=== PATIENT | male | born 1965 | race Caucasian/White ===

== ENCOUNTER 2021-03-25 16:46 | Emergency (ER) | payer OTHER ==
[2021-03-25 18:27] LABS: Hemoglobin 13.9 g/dL (13.5-17.5); Mean Corpuscular HGB CONC 32.4 g/dL (32.0-36.0); Mean Corpuscular Volume 98.8 fl (81.2-95.1); Mean Platelet Volume 11.9 fl (7.4-10.4); Platelet Count 216 10x3/uL (150-450); Red Blood Cell (RBC) Count 4.34 10x6/uL (4.32-5.72); White Blood Cell (WBC) Count 5.9 10x3/uL (3.5-10.5)
[2021-03-25 18:36] LABS: ALT (SGPT) 25 U/L (8-55); AST (SGOT) 23 U/L (5-34); Alkaline Phosphatase 65 U/L (40-110); Anion Gap 11 mmol/L (10-20); BUN (Urea Nitrogen) 13 mg/dL (8.4-25.7); Bilirubin, Total 0.5 mg/dL (0.2-1.2); CK (CPK) 127 U/L (30-200); Calc. Creatinine Clearance 0 mL/min (70-130); Calcium 8.5 mg/dL (7.8-10.44); Carbon Dioxide 26 mmol/L (22-29); Chloride 109 mmol/L (98-107); Globulin 2.7 g/dL (2.4-3.5); Glucose 95 mg/dL (70-105); Lipase 74 U/L (8-78); Potassium 4.4 mmol/L (3.5-5.1); Protein, Total 6.7 g/dL (6.0-8.3); Sodium 142 mmol/L (136-145)
[2021-03-25 18:58] LABS: Manual Diff?? YES
[2021-03-25 18:59] LABS: MDiff Complete? YES
[2021-03-25 19:01] LABS: Band 3 % (5-11); Eosinophils 1 % (0-10); Lymphocytes 28 % (21-51); Monocytes 15 % (0-10); Neutrophil 53 % (42-75)
[2021-03-25 19:02] LABS: Platelet Morphology Comment Appears Adequate
== END 2021-03-26 11:48 ==
LOC: CSHERS 16:46
DX: R55 Syncope and collapse (principal); S43.401A Unspecified sprain of right shoulder joint, initial encounter; I42.2 Other hypertrophic cardiomyopathy; E78.5 Hyperlipidemia, unspecified; K21.9 Gastro-esophageal reflux disease without esophagitis; M19.90 Unspecified osteoarthritis, unspecified site; Z79.82 Long term (current) use of aspirin; Z79.899 Other long term (current) drug therapy
CPT/HCPCS: 71045; 80053; 82550; 83690; 84484; 85025; 93005

== ENCOUNTER 2022-12-23 22:13 | Emergency (ER) | payer OTHER ==
[2022-12-23 23:50] LABS: Troponin I Less than 0.010 ng/mL (< 0.028)
== END 2022-12-24 02:00 ==
LOC: EEVIPCON 22:13 → CSHERS 22:13
DX: R00.2 Palpitations (principal); K21.9 Gastro-esophageal reflux disease without esophagitis; E78.5 Hyperlipidemia, unspecified; Z79.899 Other long term (current) drug therapy
CPT/HCPCS: 36415; 71045; 84484; 93005